=== PATIENT | female | born 1995 | race Caucasian/White ===

== ENCOUNTER 2021-11-15 10:57 | Emergency (ER) | payer OTHER ==
[2021-11-15 12:36] LABS: HEMOGLOBIN 14.3 gm/dl (12.3-15.3); RED BLOOD COUNT 4.98 M/UL (4.00-5.10); WHITE BLOOD COUNT 21.1 K/UL (4.5-11.0)
[2021-11-15 13:04] LABS: BUN/CREATININE RATIO 20 (0-10)
== END 2021-11-15 17:20 | disposition home or self-care (01) ==
LOC: ER1 10:57
PROVIDERS: Physician Assistant
DX: F41.9 Anxiety disorder, unspecified (principal); K21.9 Gastro-esophageal reflux disease without esophagitis
CPT/HCPCS: 71045; 71275; 80053; 81001; 82550; 82553; 83605; 84439; 84443; 84484; 84703; 85025; 85379; 93005; 99284; Q9967